=== PATIENT | male | born 1955 | race Caucasian/White ===

== ENCOUNTER → 2023-04-09 | Outpatient (CLI) | payer MEDICARE, OTHER ==
--- NOTE | 2023-04-09 17:45 | Diagnostic Imaging Report ---
Indication: Left knee pain. Time of Exam: 10:57 AM 4 views of the left knee were obtained. There is mild medial compartmental joint space narrowing. Patellofemoral and lateral compartments are well-maintained. The articular surfaces are smooth. No fracture, dislocation or effusion is identified. IMPRESSION: Mild medial compartmental degenerative change. No acute abnormality is detected. Dictated by: Dictated on workstation # [id number]
== END ==
LOC: ORTHO 10:51
PROVIDERS: ATTEND Orthopaedic Surgery
DX: M17.12 Unilateral primary osteoarthritis, left knee (principal); M25.561 Pain in right knee
CPT/HCPCS: 73564; G0463; 99203